=== PATIENT | male | born 2000 | race Caucasian/White ===

== ENCOUNTER 2023-06-15 08:56 | Outpatient (OUT) | payer OTHER, SELFPAY ==
[2023-06-15 09:17] LABS: Basophils Percent Auto 0.9 % (0.2-2.0); Eosinophils Absolute Auto 0.3 10^3/uL (0.0-0.7); Eosinophils Percent Auto 6.1 % (0.9-7.0); Hematocrit 46.3 % (42.0-54.0); Hemoglobin 15.7 g/dL (14.0-18.0); Immature Granulocytes Abs Auto 0.01 10^3/uL (0.00-0.03); Immature Granulocytes Pct Auto 0.2 % (0.0-0.5); Lymphocytes Absolute Auto 1.3 10^3/uL (1.2-3.8); Lymphocytes Percent Auto 28.5 % (20.5-60.0); Mean Corpuscular HGB Conc 33.9 g/dL (29.9-35.2); Mean Corpuscular Hemoglobin 28.8 pg (25.9-34.0); Mean Corpuscular Volume 84.8 fL (80.0-94.0); Mean Platelet Volume 9.9 fL (9.5-13.5); Monocytes Absolute Auto 0.4 10^3/uL (0.3-0.8); Monocytes Percent Auto 8.8 % (1.7-12.0); Neutrophils Absolute Auto 2.5 10^3/uL (1.4-6.5); Neutrophils Percent Auto 55.5 % (43.0-75.0); Platelet Count 234 10^3/uL (150-450); Red Blood Count 5.46 10^6/uL (4.70-6.10); Red Cell Distribution Width 12.3 % (11.0-15.0); White Blood Count 4.4 10^3/uL (4.0-11.0)
[2023-06-15 09:19] LABS: Bilirubin Urine NEGATIVE (NEGATIVE); Blood Urine NEGATIVE (NEGATIVE); Clarity Urine CLEAR (CLEAR); Color Urine YELLOW (YELLOW); Glucose Urine UA NEGATIVE (NEGATIVE); Ketones Urine NEGATIVE (NEGATIVE); Leukocyte Esterase Urine NEGATIVE (NEGATIVE); Nitrite Urine NEGATIVE (NEGATIVE); Protein Urine NEGATIVE (NEG/TRACE); Specific Gravity Urine 1.025 (1.005-1.025); Urobilinogen Urine 0.2 EU/dL (0.2-1.0)
[2023-06-15 10:02] LABS: Estimated Average Glucose 97 mg/dL
[2023-06-15 10:17] LABS: Alanine Aminotransferase 47 U/L (16-63); Albumin Globulin Ratio 1.2; Albumin Level 4.5 g/dL (3.4-5.0); Alkaline Phosphatase 66 U/L (46-116); Anion Gap 13.4; Aspartate Amino Transferase 24 U/L (15-37); BUN Creatinine Ratio 18.4; Bacteria Urine NONE SEEN #/HPF (NONE SEEN); Bilirubin Total 0.6 mg/dL (0.2-1.0); Calcium 9.2 mg/dL (8.5-10.1); Carbon Dioxide 28.7 mmol/L (21.0-32.0); Cast Seen? NONE SEEN #/LPF (NONE SEEN); Chloride 103 mmol/L (98-107); Crystals Seen? None Seen #/HPF (None Seen); Estimated GFR (African America >60 (>=60); Estimated GFR (Non-African Ame >60 (>=60); Globulin 3.8 g/dL; Glucose 100 mg/dL (74-106); Mucus Urine NONE SEEN (NONE SEEN); Potassium 4.1 mmol/L (3.5-5.1); RBC Urine 0-2 #/HPF (0-2); Sodium 141 mmol/L (136-145); Squamous Epithelial Cell Urine NONE SEEN #/LPF (NONE/RARE); Total Protein 8.3 g/dL (6.4-8.2); WBC Urine NONE SEEN #/HPF (NONE SEEN)
[2023-06-15 10:19] LABS: Free T4 1.03 ng/dL (0.76-1.46)
[2023-06-15 10:27] LABS: Chol HDL Ratio 3.4; Cholesterol 188 mg/dL (<=200); Free T3 3.53 pg/mL (2.18-3.98); HDL Cholesterol 55 mg/dL (40-60); LDL Cholesterol Calculated 126.6 mg/dL; Thyroid Stimulating Hormone 1.523 uIU/mL (0.358-3.740); Triglycerides 32 mg/dL (<=150); VLDL CHOLESTEROL 6.4 mg/dL
[2023-06-17 13:07] LABS: C-Peptide, Serum 2.5 ng/mL (1.1-4.4); Insulin 12.9 uIU/mL (2.6-24.9)
== END 2023-06-15 08:57 | disposition home or self-care (01) ==
PROVIDERS: PCP Family Medicine; Visit Provider Nurse Practitioner
DX: R42 Dizziness and giddiness (principal); E66.9 Obesity, unspecified
CPT/HCPCS: 36415; 80053; 80061; 81001; 81003; 82533; 83036; 83525; 84439; 84443; 84481; 84681; 85025